=== PATIENT | female | born 1940 | race Caucasian/White ===

== ENCOUNTER 2019-11-01 10:51 | Emergency (ER) | payer MEDICARE, SELFPAY ==
[2019-11-01 11:00] VITALS: BP 141/93; PULSE 90; RESP 18; TEMP 36.8; O2SAT 100
--- NOTE | 2019-11-01 11:18 | ED.SKABFB ---
HPI - Skin/Abscess/Foreign Bdy General Chief complaint: Skin/Abscess/Foreign Body Stated complaint: rash all over body Time Seen by Provider: 11/01/19 11:05 Source: patient and RN notes reviewed Mode of arrival: ambulatory Limitations: no limitations History of Present Illness HPI narrative: 78 old female presents with concern for rash. Reports pruning weeds several days ago and developing a rash on her arms, abdomen, nose. Reports rash is itchy. Reports she is cleaned it with soap, denies other intervention. Denies difficulty breathing, swelling. MD complaint: rash Related Data Home Medications Medication Instructions Recorded Confirmed clindamycin HCl 11/01/19 hydrocodone-acetaminophen 11/01/19 indapamide mg 11/01/19 potassium chloride meq PO 11/01/19 Allergies Allergy/AdvReac Type Severity Reaction Status Date / Time No Known Allergies Allergy Verified 11/01/19 11:14 Review of Systems Review of Systems: Narrative: CONSTITUTIONAL: Denies malaise, chills, sweats, or fever. EYES: Denies visual changes, redness, or discharge. ENT: Denies swollen tongue, swollen lips, difficulty swallowing CARDIOVASCULAR: Denies chest pain, palpitations, or edema. RESPIRATORY: Denies cough or dyspnea. GASTROINTESTINAL: Denies abdominal pain, nausea, vomiting, diarrhea SKIN: Reports itchy rash on nose, bilateral forearms, abdomen MUSCULOSKELETAL: Denies myalgia. All systems reviewed & are unremarkable except as noted in HPI and below PMFSH Comments At time of signature, agree with nursing past medical, surgical, social and family history. There is no relevant family history pertinent to the presenting complaint Exam Narrative: Exam Narrative: GENERAL: Well-appearing, well-nourished, and in no acute distress. HEAD: Normocephalic, atraumatic. EYES: PERRLA, conjunctivae clear, no rash ENT: Mucous membranes moist. NECK: Supple. CHEST: No respiratory distress. Speaks in full sentences. HEART: Regular rate and rhythm. SKIN: Warm, dry. Scaly rash, and linear patterns noted to the bilateral forearms. Erythema with plaques noted to the nose and cheeks NEURO: Alert and oriented x3. PSYCH: Normal mood and affect Course Course Emergency Course: Patient is aware of diagnosis, understands and agrees to treatment plan. Anticipatory guidance given. Patient agrees to follow-up as directed and is aware of reasons to seek care at the emergency department. Portions of this record may have been created with voice recognition software Vital Signs Vital signs: Vital Signs Temperature 98.2 F 11/01/19 11:00 Pulse Rate 90 11/01/19 11:00 Respiratory Rate 18 11/01/19 11:00 Blood Pressure 141/93 H 11/01/19 11:00 Pulse Oximetry 100 11/01/19 11:00 Temperature 98.2 F 11/01/19 11:00 Pulse Rate 90 11/01/19 11:00 Respiratory Rate 18 11/01/19 11:00 Blood Pressure 141/93 H 11/01/19 11:00 Pulse Oximetry 100 11/01/19 11:00 Reviewed. Patient has been instructed to follow up with her primary care provider within the next week regarding her elevated blood pressure today. MDM - Skin/Abscess/Foreign Bdy MDM Narrative Medical decision making narrative: Does not appear at this time to be erythema multiforme, bullous, SJS, TEN; no evidence at this time to suggest RMSF, endocarditis or Lyme disease; patient looks well, nontoxic and is tolerating oral intake; no neurologic signs or symptoms; no headache, photophobia or neck pain; afebrile; appropriate for initial outpatient treatment; discussed the importance of follow-up, patient agrees; question, viral exanthema, contact dermatitis, allergic dermatitis, eczema, urticaria, shingles. No soft palate or uvula edema, no tongue, lip edema or other mucosal involvement, no respiratory compromise, no stridor, no wheezing, no wheezing, no history of syncope, no hypotension, no nausea, vomiting, or diarrhea. Instructed patient to go to nearest ER immediately for any worsening sympto
== END 2019-11-01 11:25 | disposition home or self-care (01) ==
PROVIDERS: Emergency Provider Nurse Practitioner; PCP Family Medicine
DX: L25.5 Unspecified contact dermatitis due to plants, except food (principal); I10 Essential (primary) hypertension; M19.90 Unspecified osteoarthritis, unspecified site; Z96.652 Presence of left artificial knee joint; Z85.72 Personal history of non-Hodgkin lymphomas; Z92.21 Personal history of antineoplastic chemotherapy
CPT/HCPCS: 99203; G0463

== ENCOUNTER 2020-04-13 12:22 | Emergency (ER) | payer MEDICARE, SELFPAY ==
[2020-04-13 12:33] VITALS: BP 155/74; PULSE 101; RESP 18; TEMP 36.8; O2SAT 100
--- NOTE | 2020-04-13 12:50 | ED.GENADULT ---
HPI - General Adult General Chief complaint: Skin/Abscess/Foreign Body Stated complaint: red face, possible nose infection Source: patient Mode of arrival: ambulatory Limitations: no limitations History of Present Illness HPI narrative: Patient presents for evaluation of pain to the nose that started this morning. No trauma to the affected area. She states she feels a lump in the soft tissue of the nose adjacent to the right nare. She has had similar symptoms in the past on multiple occasions with what sounds to be cellulitis. She has taken abx in past for this. No fever, chills, nausea, vomiting, difficulty breathing. She noted some redness to the affected area and was concerned about developing infection so she came here for treatment. 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 No underlying hx of diabetes. Related Data Home Medications Medication Instructions Recorded Confirmed hydrocodone-acetaminophen 5 - 325 tablet PO BID PRN 11/01/19 04/13/20 indapamide 2.5 mg PO DAILY 11/01/19 04/13/20 potassium chloride 20 meq PO BID 11/01/19 04/13/20 Allergies Allergy/AdvReac Type Severity Reaction Status Date / Time No Known Allergies Allergy Verified 04/13/20 12:32 Review of Systems Review of Systems: Narrative: CONSTITUTIONAL: Denies fever, chills, or sweats. EYES: Denies visual changes, redness, or discharge. ENT: Denies rhinorrhea, congestion, sore throat, or otalgia. Reports nasal pain CARDIOVASCULAR: Denies chest pain, palpitations, or edema. RESPIRATORY: Denies cough or dyspnea. GASTROINTESTINAL: Denies abdominal pain, nausea, vomiting, or diarrhea. GENITOURINARY: Denies dysuria or hematuria. SKIN: Denies rash or itching. Reports redness to the face MUSCULOSKELETAL: Denies back pain, joint pain, or myalgia. NEUROLOGIC: Denies headache, numbness, dizziness, or weakness. PSYCHIATRIC: Denies anxiety or depression. [facility] Past Medical History Medical History Hypercalcemia Hypertension Lymphoma Surgical History Surgical History H/O: hysterectomy Family History Family History Mother No pertinent past medical history Social History Social History (Updated 04/13/20 @ 12:57 by VANESSA Moeller, ) Smoking status: Never smoker Alcohol intake: never Substance use: never Living arrangements: with family Gender identity (if verbalized by the patient): Female Spiritual care concerns: No Exam Narrative: Exam Narrative: GENERAL: Well-appearing, well-nourished, and in no acute distress. HEAD: Normocephalic, atraumatic. EYES: PERRLA and EOMI. ENT: Nares clear, no rhinorrhea or epistaxis. Mucous membranes moist. Oropharynx without tonsillar hypertrophy exudate or other lesions. Bilateral TMs pearly rush nonbulging. No lesions noted in nasal cavity. There is some tenderness noted in soft tissue of the nose adjacent to right nare NECK: Supple. No adenopathy or masses. No carotid bruits or JVD CHEST: Clear to auscultation. No respiratory distress. No wheezes rales or rhonchi HEART: Regular rate and rhythm. No murmur heard. Normal peripheral pulses. ABDOMEN: Soft, nontender, nondistended, normal active bowel sounds. EXTREMITIES: Normal range of motion. No edema. SKIN: Mild erythema noted to bilateral maxillary regions. NEURO: No focal deficits. Alert and oriented x3. PSYCH: Normal mood and affect. Course Course Emergency Course: This is a 79-year-old female that presented with pain in the nose adjacent to right nare. She states she has had similar symptoms in the past with a infection . There is very minimal erythema noted to the bilateral maxillary regions. I do not appreciate any induration or fluctuance to the nose. There is no visible abscess to nasal cavity. However given her
== END 2020-04-13 13:02 | disposition home or self-care (01) ==
PROVIDERS: Emergency Provider Nurse Practitioner; PCP Family Medicine
DX: L03.211 Cellulitis of face (principal); I10 Essential (primary) hypertension; Z85.72 Personal history of non-Hodgkin lymphomas; Z92.21 Personal history of antineoplastic chemotherapy
CPT/HCPCS: 99213; G0463